=== PATIENT | female | born 1985 | race Caucasian/White ===

== ENCOUNTER 2024-12-08 17:38 | Inpatient (IN) | payer OTHER, SELFPAY ==
[2024-12-08 11:11] VITALS: BP 126/81
[2024-12-08 11:44] LABS: Hematocrit 41.2 % (37.0-47.0); Hemoglobin 13.1 g/dL (12.0-16.0); Mean Corp Hgb Conc. 31.8 g/dL (33.0-37.0); Mean Corpuscular Volume 92.4 fL (81.0-99.0); Nucleated Red Blood Cells % 0 %; Platelet Count 235 10^3/uL (130-400); Red Cell Dist. Width 12.7 % (11.5-14.5)
[2024-12-08 11:52] LABS: Urine Character Clear (Clear)
[2024-12-08 11:54] LABS: HCG, Serum Qualitative Screen Negative
[2024-12-08 11:59] LABS: ALT (SGPT) 39 U/L (0-35); AST (SGOT) 34 U/L (14-36); Albumin 4.4 g/dl (3.5-5.0); Alkaline Phosphatase 62 U/L (38-126); Blood Urea Nitrogen 9 mg/dl (7-17); Calcium 9.0 mg/dl (8.4-10.2); Carbon Dioxide 29 mmol/L (22-30); Chloride 99 mmol/L (98-107); Glucose 100 mg/dl (70-99); Sodium 132 mmol/L (135-145); Total Protein 7.1 g/dl (6.3-8.2); eGFR > 60.00
[2024-12-08 12:14] LABS: Potassium 4.2 mmol/L (3.5-5.1)
--- NOTE | 2024-12-08 12:56 | ED.GENMED ---
History of Present Illness
General
Chief Complaint: Flank Pain
Source: patient
Exam Limitations: none
Time Seen by Provider: 12/08/24 12:55
Nursing documentation reviewed up to this point in time: agreed with
History of Present Illness
History of Present Illness:
Note:
CHIEF COMPLAINT(S)
Vaginal discomfort and sharp abdominal pain.
HISTORY OF PRESENT ILLNESS
The patient is a 38-year-old female who presents with a complaint of vaginal discomfort that started approximately one week ago. The patient initially noted discomfort and inflammation with no accompanying vaginal discharge. She attempted
self-treatment with an wlqk-mcd-glyyqlm antifungal medication, which provided partial relief. Two days ago, she developed sharp pains on her side, which she described as a gap pain or stitch, and dull pain that radiated to her back, accompanied by a
subjective fever. Today, the pain worsened, and she describes it as a persistent, dull pain in her back with some areas of tenderness, particularly when palpated, and more severe upon breathing deeply. She denies any current vaginal discharge or
urination-associated discomfort. The patient visited an urgent care facility where an x-ray was performed, which showed no significant findings. A preliminary urinalysis was also negative. Lab results showed a white blood cell count slightly
elevated at approximately 12.5, suggestive of an inflammatory or infective process. Kidney function tests and electrolytes were normal. No current vomiting, and no recent surgeries reported except for carpal tunnel surgery in the past. The patient
is taking compounded semaglutide for weight management.
ADDITIONAL HISTORY OBTAINED FROM SOURCES OTHER THAN THE PATIENT
According to the urgent care facility where the patient was evaluated, imaging did not reveal acute findings, and urinalysis did not show any signs of infection. Nonetheless, they prescribed antibiotics as a precaution pending further evaluation.
PAST MEDICAL AND SURGICAL HISTORY
The patient underwent carpal tunnel surgery in the past. She reports significant weight loss of about 100 pounds through the use of compounded semaglutide.
CHRONIC MEDICAL CONDITIONS SIGNIFICANTLY AFFECTING CARE
The patient has struggled with weight issues, which she is currently managing with medication.
MEDICATIONS
The patient is currently taking compounded semaglutide for weight loss.
REVIEW OF SYSTEMS
- Gastrointestinal: Reports sharp and dull abdominal pain predominantly on the left side.
- Genitourinary: Reports vaginal discomfort without discharge; no pain with urination.
- Neurological: Denies recent surgeries or focal neurological deficits.
- General: Reports fever, denies vomiting. No recent chest pain reported.
PHYSICAL EXAM
General: Alert, no acute distress.
Skin: Warm, dry.
Head: Normocephalic, atraumatic.
Neck: Supple, trachea midline.
Eye Ears, Nose, Mouth, and Throat: Oral mucosa moist.
Cardiovascular: Normal peripheral perfusion, no edema.
Respiratory: Respirations are non-labored.
Gastrointestinal: Abdomen nondistended, tenderness noted on palpation, particularly on the left side.
Back: Normal range of motion, tenderness reported diffusely in the region.
Musculoskeletal: Normal range of motion, normal strength.
Neurological: Alert and oriented to person, place, time, and situation, no focal neurological deficit observed.
Psychiatric: Cooperative, appropriate mood & affect.
PLAN
1. Plan for a CT scan to evaluate abdominal pain and rule out potential causes such as inflammation or diverticulitis.
2. Manage pain with appropriate analgesics, such as acetaminophen.
3. Continue monitoring lab results, especially white blood cell count for signs of infection or inflammation.
4. Consider further urological evaluation if symptoms persist or worsen, taking into account the potential for kidney involvement.
5. Evaluate and potentially adjust the management plan after CT scan results.
DIFFERENTIAL DIAGNOSIS
The Differential Diagnosis includes, in no particular order and is not limited to:
1. Kidney infection (Pyelonephritis)
2. Urinary Tract Infection
3. Diverticulitis
4. Musculoskeletal pain
5. Ovarian cyst
6. Endometriosis
7. Appendicitis
8. Ectopic
9. Gallbladder disease
10. Inflammatory bowel disease
CARE-UPDATE
12/08/24 - 17:14
Patients imaging from the pelvis indicated the presence of theitis and pyelonephritis, without any obstructing stones observed. A punctate, non-obstructing stone was noted in the left kidney. Plan includes admission to hospitalist care and
initiation of IV rocephin treatment.
Disposition:
SUMMARY OF ENCOUNTER
The patient was seen in the emergency department due to symptoms consistent with a diagnosis of pyelonephritis. The patient presented with fever and abdominal pain, which prompted further investigation and management. Blood cultures and IV fluids
were ordered to assess and address the infection, and IV ceftriaxone (brand name: Rocephin) and ketorolac (brand name: Toradol) were administered for infection management and pain relief, respectively.
DISPOSITION
Admit to hospitalist care.
ASSESSMENT
Pyelonephritis with associated fever requiring inpatient management.
EMERGENCY TREATMENTS ADMINISTERED
IV ceftriaxone and ketorolac were given. IV fluids were administered to maintain hydration and support.
MANAGEMENT OF THE PATIENTS CARE WAS DISCUSSED WITH
Admission to the care of hospitalists was arranged for ongoing management.
PLAN
The plan includes admission for further evaluation and management under the hospitalist team with a focus on infection control and pain management.
INDEPENDENT REVIEW OF LABS AND INTERPRETATION OF TESTS
My independent review of lab tests indicates blood cultures were ordered to identify causative organisms of the infection.
MEDICATION RECONCILIATION
Administered IV ceftriaxone, IV ketorolac, and IV fluids during the visit.
MEDICAL DECISION MAKING
- Number and Complexity of Problems Addressed: Chronic conditions affecting care include past diagnosis of pyelonephritis.
Differential Diagnosis includes kidney infection (pyelonephritis), urinary tract infection, diverticulitis, musculoskeletal pain, ovarian cyst, endometriosis, appendicitis, ectopic , gallbladder disease, and inflammatory bowel disease.
- Data:
Category 1: Blood cultures ordered for further assessment of potential infection.
Category 3: Management discussion included coordinating with hospitalist for patient admission and ongoing care.
DIAGNOSIS
Pyelonephritis (N10)
Phy Exam
Physical Exam
Physical Exam:
.
Sepsis
Sepsis Screening
Sepsis Assessment: Sepsis Ruled Out
Sepsis Screen
Sepsis Screen: Sepsis Ruled Out
Date: 12/08/24
Time: 17:16
Course
Orders/Labs/Results
Orders:
Orders
12/08/24 11:17
Test Result ONCE
12/08/24 11:30
Complete Blood Count/With Diff Urgent
Comprehensive Metabolic Panel Urgent
HCG, Serum Qualitative Screen Urgent
Comment: Notify provider if positive test present
Lactic Acid Q4H
Comment: ON ICE, CANCEL 2ND ORDER IF FIRST LACTIC ACID LEVEL <2
Urinalysis Reflex To Culture Urgent
Date Specimen was Collected: 12/08/24
Time Specimen was Collected: 11:17
Urine Microscopic Reflex Cult Urgent
Blood Culture Q20M
CHRISTINA Source: Blood/Venous
Specimen Description:
Comment: Urgent from separate sites. If patient screens positive for possible sepsis
Urine Culture Urgent
CHRISTINA Source: U
Specimen Description:
Date Specimen was Collected: 12/08/24
Time Specimen was Collected: 11:17
12/08/24 12:55
Blood Culture Q20M
CHRISTINA Source: Blood/Venous
Specimen Description:
Comment: Urgent from separate sites. If patient screens positive for possible sepsis
12/08/24 13:11
CT Abd/pelvis W Iv Cont Urgent
Comment:
Reason For Exam: LLQ abd pain/back pain
Acetaminophen [Tylenol] 650 mg PO NOW STA
12/08/24 17:10
CefTRIAXone [Rocephin] 2,000 mg IV NOW STA
Abnormal Lab Results
12/08/24
11:30
WBC 12.7 H 10^3/uL
(4.8-10.8)
MCHC 31.8 L g/dL
(33.0-37.0)
Absolute Neuts (auto) 11.2 H 10^3/uL
(1.4-6.5)
Absolute Lymphs (auto) 0.7 L 10^3/uL
(1.2-3.4)
Neutrophils % 88.2 H %
(42.2-75.2)
Lymphocytes % 5.7 L %
(20.5-51.1)
Sodium 132 L mmol/L
(135-145)
Glucose 100 H mg/dl
(70-99)
ALT 39 H U/L
(0-35)
Ur Occult Blood Reflex 2+ A
(Negative)
Urine RBC 7-10 A /HPF
(0-2)
Urine WBC (Reflex) 11-15 A /HPF
(0-5)
Urine Bacteria (Reflex) Few A
(Negative)
Urine Albumin (Reflex) 1+ A
(Neg - Trace)
12/08/24 11:30
12/08/24 11:30
Vital Signs
Initial and Last Documented VS:
Initial Vital Signs
Temp Pulse Resp BP Pulse Ox
101 F H 131 16 126/81 98
12/08/24 11:11 12/08/24 11:11 12/08/24 11:11 12/08/24 11:11 12/08/24 11:11
Last Documented Vital Signs
Temp Pulse Resp BP Pulse Ox
99.9 F 110 16 106/56 100
12/08/24 14:03 12/08/24 14:03 12/08/24 14:03 12/08/24 14:03 12/08/24 14:03
*Pulse Oximetry
SaO2: 98
Oxygen Mode of Delivery: Room air
Patient hypoxic: no
*Critical Care Note
Total Time (30-74mins, 75-104mins- exclusive of procedures): Not Applicable
ED Attending Note
-
Portions of this chart may have been created with voice recognition software.� Occasional wrong word or��sound alike� substitutions may have occurred due to the inherent limitations of voice recognition software.
Discharge Plan
Departure
Prescriptions:
No Action
One Daily Tablet Tab
1 tab PO DAILY
levothyroxine [Synthroid] 100 mcg Tablet
100 mcg PO DAILY
acetaminophen 325 mg Tablet
650 mg PO Q4HPRN PRN (Reason: mild pain) Qty: 0 0RF
ibuprofen 600 mg Tablet
600 mg PO Q6HPRN PRN (Reason: moderate pain/cramps) Qty: 0 0RF
Referrals:
Efraín Mark DO [Family Provider]
Interventions
Interventions:
*Risk Screen - Suicide Last Done: 12/08/24 11:11
*General Assessment Last Done: 12/08/24 12:58
*Neglect/Abuse Screening Last Done: 12/08/24 11:11
*ED- Fall Risk Assessment Last Done: 12/08/24 12:58
*ED COVID-19 Vaccine History Last Done: 12/08/24 12:58
*ED Influenza Vaccine History Last Done: 12/08/24 12:58
PX-Byymit-Dhfubvtxhr Assessment Last Done: 12/08/24 12:57
ED-Female Genitourinary Assessment Last Done: 12/08/24 12:57
Discharge Date and Time
Print Language: MALTESE
[2024-12-08] MEDS: TYLENOL 650 MG PO (13:15)
[2024-12-08 14:03] VITALS: BP 106/56
[2024-12-08] MEDS: NSS 1000 IV ×2 (17:17→20:59)
[2024-12-08] MEDS: ROCEPHIN 2000 MG IV (17:17)
[2024-12-08] MEDS: TORADOL 15 MG IV (17:17)
[2024-12-08 17:26] VITALS: BP 110/64
--- NOTE | 2024-12-08 17:27 | HPS.HSE ---
Family Physician
-
Family Physician: Efraín Mark, DO
Chief Complaint
-
left flank pain
History of Present Illness
38-year-old female past medical history of hypothyroidism, presenting with left-sided flank pain rating down to the groin and increased urinary frequency and fever and chills starting yesterday. 2 days ago she had vaginal irritation and was treated
for vaginal yeast infection with a dose of antifungal with some improvement. Denies nausea or vomiting.
She takes GLP-1 agonist for weight loss.
She is a former smoker. Drinks alcohol occasionally.
Medical History
Past Medical History
Past Medical History: Reports Other (hypothyroidism,)
Past Surgical History: Reports None
Social History
Tobacco: Former Smoker
Alcohol: None
Drug: None
Family History
Family History: Not pertinent
Allergies / Home Medications
Allergies reflects when Allergies were last updated in [facility].
Home Medications with original date entered in [facility]
Allergy/Medication List:
Allergies
Allergy/AdvReac Type Severity Reaction Status Date / Time
No Known Allergies Allergy Verified 08/23/22 19:41
Home Medications
One Daily Tablet 1 tab PO DAILY Supplement 05/29/16
levothyroxine 100 mcg tablet (Synthroid) 100 mcg PO DAILY 08/23/22
acetaminophen 325 mg tablet 650 mg (2 x 325 mg) PO Q4HPRN PRN mild pain #0 tabs 08/25/22
ibuprofen 600 mg tablet 600 mg PO Q6HPRN PRN moderate pain/cramps #0 tabs 08/25/22
Review of Systems
-
History Source: Patient
A 12 point ROS was completed and negative except as noted: Yes
Constitutional: Reports No Symptoms
EENT: Reports No Symptoms
Respiratory: Reports No Symptoms
Cardiac: Reports No Symptoms
Abdomen/GI: Reports See HPI
: Reports No Symptoms
Musculoskeletal: Reports No Symptoms
Skin: Reports No Symptoms
Neurological: Reports No Symptoms
Endocrine: Reports No Symptoms
Hematologic/Lymphatic: Reports No Symptoms
Psych: Reports No Symptoms
Physical Exam
Vital Signs
Vital Signs
Temp Pulse Resp BP Pulse Ox
98.9 F 98 16 110/64 100
12/08/24 17:26 12/08/24 17:26 12/08/24 17:26 12/08/24 17:26 12/08/24 17:26
Physical Exam
General: Well Developed, Well Nourished and No Apparent Distress
HEENT: NormoCephalic, Moist mucous membranes and Atraumatic
Respiratory: Clear
Cardiac: S1/S2 and Regular Rhythm; No Murmur or Rub
GI: Soft, Non Distended, Normal Bowel Sounds and Tender (left flank ); No Organomegaly
Rectal: Deferred by Provider
Musculoskeletal: No Clubbing, No Cyanosis and No Edema
Skin: No Rash
Neuro: Nonfocal/grossly intact
Laboratory Results
-
12/08/24 11:30
12/08/24 11:30
Laboratory Results
Lactic Acid Cancelled 12/08/24 15:30
Total Bilirubin 1.3 mg/dl (0.2-1.3) 12/08/24 11:30
AST 34 U/L (14-36) 12/08/24 11:30
ALT 39 U/L (0-35) H 12/08/24 11:30
Alkaline Phosphatase 62 U/L (38-126) 12/08/24 11:30
Data Reviewed
-
Lab Data: Labs Reviewed by me
Old Records: Reviewed
Impression/Plan
-
IMPRESSION:
PLAN:
# Acute left-sided pyelonephritis
-CT abdomen pelvis shows circumferential wall thickening suggestive of cystitis, left-sided urothelial wall thickening and enhancement, ill-defined hypodensity within the posterior aspect of the lower lobe of the left kidney suspicious for
pyelonephritis
-Urinalysis shows 11-15 WBC
- IV fluids
- Urine culture, blood cultures
- Ceftriaxone
- Toradol, Dilaudid, Zofran
# Vaginal yeast infection
- Treated with antifungal dose 2 days ago, does not remember the name
Hypothyroidism
-continue levothyroxine
Former smoker
Full code
DVT prophylaxis�heparin
Regular diet
--- NOTE | 2024-12-08 17:38 | EDCM ---
CM reviewed chart and met with pt bedside in ED. Lives with her and 4 children in 1 story home.
Independent in ADLs, personal care and ambulation at baseline. No DME.
Confirms prescription coverage.
No hx VN or SNF.
PCP: Efraín Mark
Pharmacy: [facility]
Anticipate discharge home, CM will continue to follow for all discharge planning needs.
[2024-12-08 19:55] VITALS: BP 131/61; BMI 29.4
[2024-12-08] MEDS: HEPARIN 5000 UNITS SC (20:59)
[2024-12-08] MEDS: DILAUDID 0.5 MG IV (21:00)
--- NOTE | 2024-12-08 22:59 | PTCARENOTE ---
Receive pt from ER. Pt alert oriented X3, calm, in no distress. Pt assisted X1 to the room. Pt oriented to the room, call torres within reach. Pt states that she has left flank pain. The pain is 6/10 of intensity. Dilaudid 0.5mg given for pain. IVFs
infusing as per order. Temp=99.6, WT=862, RR=18, QT=867/6, SpO2=97% on RA. Will continue to monitor the pt.
[2024-12-08 23:56] VITALS: BP 122/76
[2024-12-09] MEDS: TYLENOL 650 MG PO ×3 (01:45→19:44)
[2024-12-09] MEDS: TORADOL 10 MG IV (03:04)
[2024-12-09] MEDS: SYNTHROID 88 MCG PO (05:03)
[2024-12-09] MEDS: DILAUDID 0.5 MG IV ×4 (05:34→23:15)
[2024-12-09 07:02] LABS: Hematocrit 34.1 % (37.0-47.0); Hemoglobin 11.1 g/dL (12.0-16.0); Mean Corp Hgb Conc. 32.6 g/dL (33.0-37.0); Mean Corpuscular Volume 91.4 fL (81.0-99.0); Nucleated Red Blood Cells % 0 %; Platelet Count 177 10^3/uL (130-400); Red Cell Dist. Width 12.6 % (11.5-14.5)
[2024-12-09 07:10] VITALS: BP 91/50
[2024-12-09 07:10] LABS: ALT (SGPT) 61 U/L (0-35); AST (SGOT) 80 U/L (14-36); Albumin 2.9 g/dl (3.5-5.0); Alkaline Phosphatase 53 U/L (38-126); Blood Urea Nitrogen 7 mg/dl (7-17); Calcium 7.8 mg/dl (8.4-10.2); Carbon Dioxide 25 mmol/L (22-30); Chloride 107 mmol/L (98-107); Estimated Creatinine Clearance > 125 ml/min; Glucose 114 mg/dl (70-99); Potassium 3.3 mmol/L (3.5-5.1); Sodium 133 mmol/L (135-145); Total Protein 5.3 g/dl (6.3-8.2); eGFR > 60.00
[2024-12-09] MEDS: NSS 1000 IV ×2 (07:28→17:29)
[2024-12-09] MEDS: HEPARIN 5000 UNITS SC ×2 (08:04→19:45)
--- NOTE | 2024-12-09 08:25 | W.PN.HOSP.TC ---
Today's Communication/Plan
-
Continue antibiotics
Follow urine and blood cultures
See plan
Assessment / Plan
Assessment / Plan
Physical Exam
General: Well Developed, Well Nourished and No Apparent Distress
HEENT: Normocephalic, Moist mucous membranes and Atraumatic
Respiratory: Clear to Auscultation Bilaterally
Cardiac: S1/S2 and Regular Rhythm
GI: Soft, Non Distended, Normal Bowel Sounds and Tender (left flank ). No CVA tenderness on either side.
Musculoskeletal: No Cyanosis and No Edema
Skin: Warm. Dry.
Neuro: AAOx3. Nonfocal/grossly intact
Assessment/Plan
38-year-old female past medical history of hypothyroidism, presenting with left-sided flank pain rating down to the groin and increased urinary frequency and fever and chills starting yesterday. 2 days ago she had vaginal irritation and was treated
for vaginal yeast infection with a dose of antifungal with some improvement. Denies nausea or vomiting. She takes GLP-1 agonist for weight loss. She is a former smoker. Drinks alcohol occasionally.
#Presentation with Left Sided Abdominal Pain
# Acute left-sided pyelonephritis
-CT abdomen pelvis shows circumferential wall thickening suggestive of cystitis, left-sided urothelial wall thickening and enhancement, ill-defined hypodensity within the posterior aspect of the lower lobe of the left kidney suspicious for
pyelonephritis
-Urinalysis showed 11-15 WBC, and now growing gram negative bacilli
- IV fluids
- Urine culture, blood cultures
- Ceftriaxone
- Toradol, Dilaudid, Zofran
-Blower Mechanic consulted given IUD findings -- responsible for pain?
#Mild Transaminitis
-Suspected secondary to Ceftriaxoe
-Continue to monitor
# Vaginal yeast infection
- Treated with antifungal dose 2 days ago, does not remember the name
Hypothyroidism
-continue levothyroxine
Former smoker
Full code
DVT prophylaxis�heparin
Regular diet
Anticipated Discharge: 24 - 48 hours
Subjective/Interval History
-
Date of Service: December 09, 2024
Patient was seen and examined. She reported that her left-sided pain is better.
Objective Data
-
Labs:
Laboratory Results
12/09/24
06:05
WBC 8.6
Hgb 11.1 L
Hct 34.1 L
Plt Count 177 D
Sodium 133 L
Potassium 3.3 L
Chloride 107
Carbon Dioxide 25
BUN 7
Creatinine 0.5 L
Glucose 114 H
Calcium 7.8 L
Total Bilirubin 0.9
AST 80 H
ALT 61 H
Alkaline Phosphatase 53
Vital Signs:
Vital Signs
Temp Pulse Resp BP Pulse Ox
97.9 F 67 16 91/50 97
12/09/24 07:10 12/09/24 07:10 12/09/24 07:10 12/09/24 07:10 12/09/24 07:10
I&O
12/08/24 12/09/24 12/10/24
06:59 06:59 05:59
Intake Total 480 / 480 1000 / 1000
Balance 480 / 480 1000 / 1000
[2024-12-09] MEDS: KCL 40 MEQ PO (09:23)
[2024-12-09 11:10] VITALS: BP 100/66
[2024-12-09 15:16] VITALS: BP 119/74
[2024-12-09] MEDS: ROCEPHIN 1000 MG IV (15:31)
[2024-12-09 23:14] VITALS: BP 105/68
[2024-12-10] MEDS: NSS 1000 IV ×3 (02:37→21:58)
[2024-12-10] MEDS: DILAUDID 0.5 MG IV ×4 (04:22→21:59)
[2024-12-10] MEDS: SYNTHROID 88 MCG PO (04:23)
[2024-12-10 07:20] VITALS: BP 121/76
[2024-12-10] MEDS: HEPARIN 5000 UNITS SC ×2 (08:14→20:41)
--- NOTE | 2024-12-10 08:26 | W.PN.HOSP.TC ---
Today's Communication/Plan
-
Surgery tomorrow; NPO after midnight. If fever or patient feels worse, surgery will be postponed
Antibiotics switched to oral
Hold Tylenol to avoid masking a potential fever
Assessment / Plan
Assessment / Plan
Physical Exam
General: Well Developed, Well Nourished and No Apparent Distress
HEENT: Normocephalic, Moist mucous membranes and Atraumatic
Respiratory: Clear to Auscultation Bilaterally
Cardiac: S1/S2 and Regular Rhythm
GI: Soft, Non Distended, Normal Bowel Sounds and Tender (left flank ). No CVA tenderness on either side.
Musculoskeletal: No Cyanosis and No Edema
Skin: Warm. Dry.
Neuro: AAOx3. Nonfocal/grossly intact
Assessment/Plan
38-year-old female past medical history of hypothyroidism, presenting with left-sided flank pain rating down to the groin and increased urinary frequency and fever and chills starting yesterday. 2 days ago she had vaginal irritation and was treated
for vaginal yeast infection with a dose of antifungal with some improvement. Denies nausea or vomiting. She takes GLP-1 agonist for weight loss. She is a former smoker. Drinks alcohol occasionally.
#Presentation with Left Sided Abdominal Pain
# Acute left-sided pyelonephritis
-CT abdomen pelvis shows circumferential wall thickening suggestive of cystitis, left-sided urothelial wall thickening and enhancement, ill-defined hypodensity within the posterior aspect of the lower lobe of the left kidney suspicious for
pyelonephritis
-Urinalysis showed 11-15 WBC, and grew pansensitive E. coli
- IV fluids were given
- Blood cultures with no growth to date
- Ceftriaxone switched to Ceftin on 12/10/24
- Dilaudid, Zofran
- Hold Tylenol to avoid masking a potential fever
- Knife Grinder consulted given IUD findings -- NPO to remove IUD and perform laparoscopic bilateral salpingectomy on 12/11/24 -- if patient has fever or feels worse overnight, then surgery will be postponed
#Mild Transaminitis
-Suspected secondary to Ceftriaxone, which has been stopped (last dose was on 12/09/24) and replaced with Ceftin
-Toradol stopped
-Continue to monitor
# Vaginal yeast infection
- Treated with antifungal dose 2 days ago, does not remember the name
Hypothyroidism
-continue levothyroxine
Former smoker
Full code
DVT prophylaxis�heparin
Regular diet
Anticipated Discharge: 24 - 48 hours
Subjective/Interval History
-
Date of Service: December 10, 2024
Patient was seen and examined. She reported the left-sided pain is still there, had fever the night before.
Objective Data
-
Labs:
Laboratory Results
12/10/24
08:01
WBC Pending
Hgb Pending
Hct Pending
Plt Count Pending
Sodium Pending
Potassium Pending
Chloride Pending
Carbon Dioxide Pending
BUN Pending
Creatinine Pending
Glucose Pending
Calcium Pending
Total Bilirubin Pending
AST Pending
ALT Pending
Alkaline Phosphatase Pending
Vital Signs:
Vital Signs
Temp Pulse Resp BP Pulse Ox
98.9 F 84 18 105/68 97
12/10/24 02:40 12/09/24 23:14 12/09/24 23:14 12/09/24 23:14 12/09/24 23:14
I&O
12/09/24 12/10/24 12/11/24
06:59 05:59 06:59
Intake Total 480 / 480 2099
Balance 480 / 480 2099
[2024-12-10 08:59] LABS: Hematocrit 33.2 % (37.0-47.0); Hemoglobin 11.1 g/dL (12.0-16.0); Mean Corp Hgb Conc. 33.4 g/dL (33.0-37.0); Mean Corpuscular Volume 89.5 fL (81.0-99.0); Platelet Count 168 10^3/uL (130-400); Red Cell Dist. Width 12.7 % (11.5-14.5)
[2024-12-10 09:34] LABS: ALT (SGPT) 154 U/L (0-35); AST (SGOT) 104 U/L (14-36); Albumin 3.1 g/dl (3.5-5.0); Alkaline Phosphatase 86 U/L (38-126); Blood Urea Nitrogen 3 mg/dl (7-17); Calcium 8.1 mg/dl (8.4-10.2); Carbon Dioxide 25 mmol/L (22-30); Chloride 106 mmol/L (98-107); Estimated Creatinine Clearance > 125 ml/min; Glucose 86 mg/dl (70-99); Potassium 4.0 mmol/L (3.5-5.1); Sodium 135 mmol/L (135-145); Total Protein 5.5 g/dl (6.3-8.2); eGFR > 60.00
--- NOTE | 2024-12-10 11:31 | W.PN.URO.CBU ---
Today's Communication / Plan
-
continue present care
Assessment / Plan
-
pt with normalizing wbc and panseneiticve e coli will observe but if fevr spikes or wbc spikes then ct urogram
Diagnosis
-
Date of Service: December 10, 2024
-
Patient Diagnosis:complex uti blood cxs neg urine with e coli observing for posibe abscess formation and t=still left flank pain but mos tliley dx is pyelo and still pain from inflammation
Post Op Day:
Subjective
-
fever pain bu adrian than day before
Objective
-
Vital Signs
Temp Pulse Resp BP Pulse Ox
100.1 F 86 16 121/76 97
12/10/24 07:20 12/10/24 07:20 12/10/24 07:20 12/10/24 07:20 12/10/24 07:20
Intake and Output
12/09/24 12/10/24 12/11/24
06:59 05:59 06:59
Intake Total 480 / 480 2099 / 2100
Balance 480 / 480 2099 / 2099
Intake:
Oral fluids 480 / 480
IV fluids (Total) 2099
Other:
Number of approximated MODERATE 3 2
amounts of urine
Laboratory Results
12/10/24 08:01
12/10/24 08:01
Review of Systems
-
Constitutional: Fever and Fatigue
: Flank Pain
Physical Exam
-
General - well developed, well nourished, no acute distress
Chest - clear bilaterally
Abdomen - soft, non-tender, positive bowel sounds, no CVAT, no incisional pain or distention
Genitalia - normal
Rectal - normal
Skin - warm & dry with no rash
Neuro - AOx3, no motor deficits
Extremities - no clubbing, no cyanosis, no edema
Incision - clean, dry
Dressing - clean, dry, intact
Counseling
-
no gu changes
--- NOTE | 2024-12-10 13:28 | CON.MD ---
Addendum entered and electronically signed by Janae Dumont DO 12/10/24 16:51:
Addendum: left IUD limb/arm*
Original Note:
Consultation - Medical
-
38-year-old female with Mirena IUD inserted approximately 2 years ago, was admitted with left-sided flank pain radiating down to the groin. She has had increased urinary frequency and chills starting yesterday. A few days ago she experienced
some vaginal irritation which seem to be increasing in intensity. She used an [id number] Monistat 1 day suppository with some improvement. She spiked a fever at home and had chills and this prompted her to go to urgent care. She was
ultimately directed to [facility].
Gynecologic consultation was requested due to presence of IUD in the uterus with the left limb of the IUD appearing to extend slightly through the uterine wall.
Review of systems: Admitted with positive fever, chills, vulvovaginal irritation, left flank pain. Negative dysuria, negative hematuria. Negative nausea, diarrhea, constipation.
PMH: Hypothyroidism
PSH: Negative
NKDA
Social history: Former tobacco but not current tobacco user, negative alcohol or illicit drug use
Family history noncontributory
OB history: 4 full-term deliveries
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 Her IUD was inserted weeks after her 6-week appointment in 2022. Last Pap several years ago. Denies
abnormal vaginal discharge. Recent vulvovaginal irritation and self treated with Monistat with some improvement. Has completed childbearing.
Physical exam:
General: Well-appearing, no acute distress
VSS Tmax 102.3 (12/09/2024 at 1930)
Heart: Regular rate
Pulmonary: Normal respiratory rate
Positive CVA tenderness on left
Extremities without calf pain or tenderness
Pelvic examination was deferred
CT abdomen/pelvis with IV contrast performed 12/08/2024:
Kidneys: No hydronephrosis. There is a punctate nonobstructing stone in the interpolar of the left kidney. There is an ill-defined hypodensity within the posterior aspect of the lower pole of the left kidney. Mild right sided urethral wall
thickening and enhancement.
No bowel wall thickening or obstruction. Appendix not definitively visualized but there are no findings of acute appendicitis.
Reproductive organs: IUD is present. Left Alimix appears to extend slightly outside the uterine wall (series 201 image 66 and series 203 image 49).
Bladder there is circumferential bladder wall thickening with mucosal hyperenhancement. Tiny fat-containing umbilical hernia. Mild splenomegaly.
WBC 6.0
Hemoglobin 11.1/hematocrit 33.2/platelet 168
Creatinine 0.5
AST 104 (up from 80) and ALT 154 (up from 61)
hCG qualitative negative
Urine culture 12/08/2024: E. coli
Blood culture no growth x 48 hours
Impression:
1. Malposition of Mirena IUD with partial perforation of uterine wall.
2. Multiparity with request for sterilization-patient has completed childbearing. Declines alternative reversible forms of contraception.
Plan:
Reviewed history, prior notes of other providers, labs and reports. Discussed malpositioned IUD and explained to the patient that because this is not in the proper position, it may be less effective. Since there is a small portion of the IUD that
has penetrated the uterine wall, there is risk for complete perforation in the future. It is recommended to remove this IUD. 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
She was trying to make an appointment with the gynecology office closer to her home and [place] but has not yet established care.
Exam under anesthesia with removal of IUD is recommended. I am recommending a diagnostic laparoscopy at the same time to evaluate the uterine wall after the IUD is removed. The purpose of this is to make sure there is no internal bleeding after
removal of the IUD. I asked the patient her plan for future contraception once IUD is removed. She states she and her have completed childbearing and she is interested in permanent sterilization. She does not feel her will follow
through with vasectomy in the near future and timing. Since a laparoscopy will be performed I discussed the option of a bilateral salpingectomy at the time of this procedure. I would not recommend putting a new IUD in the uterus for several months
to allow appropriate healing. The patient states she is not interested in having a new IUD. She is interested in having bilateral salpingectomy.
She was counseled about the recommended procedure which is an exam under anesthesia, removal of IUD, laparoscopic bilateral salpingectomy, possible hysteroscopy or other indicated procedure. I explained the indication, benefits, risks and
alternatives of the procedure. The risks include but are not limited to infection, bleeding, injury to any internal tissues/structures/organs. She was counseled that in any event of a complication, this could necessitate additional procedures not
listed which could prolong hospitalization and/or recovery. Blood transfusion consent with its inherent risks of also been discussed.
I spoke with Dr. Brenner and also contacted Dr. Rincon via [employer] text to outline plan to remove IUD and perform laparoscopic bilateral salpingectomy tomorrow. They wanted to make sure they had no concerns about performing this in light of her other
problems, and specifically being treated for pyelonephritis. Neither Had any problem with me performing this procedure. I reviewed preoperative instructions. Will make her n.p.o. except clears after midnight but must stop clears within 2
hours of going to the OR. Will attempt to find out estimated surgical time. Discussed procedure length of procedure activity restrictions recovery, and postoperative follow-up. Blood transfusion consent with its inherent risks have also been
discussed. She had opportunity to have her questions answered and these were answered to her satisfaction. She discussed salpingectomy with her . She is aware that she has until day of procedure to change her mind regarding salpingectomy.
She is confident of 100% that she does not want to have anymore children in the future.
I notified the patient's nurse of the plan for tomorrow and parameters for NPO.
Total time including dudy-kk-eviy time with the patient, review of previous records, personal review of CT imaging, documentation and coordination of care today in excess of 60 minutes.
Consultation
-
Date/Time Consultation Requested: 12/09/24 17:00
Date/Time Consultation Performed: 12/10/24 1:30pm
Requesting Provider: Dr. Rincon
Performing Provider: Janae Dumont DO
Reason for Consultation: malpositioned IUD and abdominal pain
[2024-12-10 15:40] VITALS: BP 108/68
[2024-12-10] MEDS: ROCEPHIN IV (16:29)
[2024-12-10] MEDS: TYLENOL 650 MG PO (16:45)
[2024-12-10] MEDS: CEFTIN 500 MG PO (20:41)
[2024-12-10 23:55] VITALS: BP 105/60
[2024-12-11] VITALS (11 sets, daily range): BP systolic 104–124; BP diastolic 59–78
[2024-12-11] MEDS: DILAUDID 0.5 MG IV (04:31)
[2024-12-11] MEDS: SYNTHROID 88 MCG PO (04:32)
[2024-12-11 06:53] LABS: Hematocrit 33.0 % (37.0-47.0); Hemoglobin 10.7 g/dL (12.0-16.0); Mean Corp Hgb Conc. 32.4 g/dL (33.0-37.0); Mean Corpuscular Volume 88.9 fL (81.0-99.0); Platelet Count 179 10^3/uL (130-400); Red Cell Dist. Width 12.7 % (11.5-14.5)
--- NOTE | 2024-12-11 07:04 | W.PN.HOSP.TC ---
Today's Communication/Plan
-
Surgery took place today
Continue antibiotics
Hopefully discharge tomorrow if all looking good
Assessment / Plan
Assessment / Plan
Physical Exam
General: Well Developed, Well Nourished and No Apparent Distress
HEENT: Normocephalic, Moist mucous membranes and Atraumatic
Respiratory: Clear to Auscultation Bilaterally
Cardiac: S1/S2 and Regular Rhythm
GI: Soft, Non Distended, Normal Bowel Sounds and Tender (left flank ). No CVA tenderness on either side.
Musculoskeletal: No Cyanosis and No Edema
Skin: Warm. Dry.
Neuro: AAOx3. Nonfocal/grossly intact
Assessment/Plan
38-year-old female past medical history of hypothyroidism, presenting with left-sided flank pain rating down to the groin and increased urinary frequency and fever and chills starting yesterday. 2 days ago she had vaginal irritation and was treated
for vaginal yeast infection with a dose of antifungal with some improvement. Denies nausea or vomiting. She takes GLP-1 agonist for weight loss. She is a former smoker. Drinks alcohol occasionally.
#Presentation with Left Sided Abdominal Pain
# Acute left-sided pyelonephritis
-CT abdomen pelvis shows circumferential wall thickening suggestive of cystitis, left-sided urothelial wall thickening and enhancement, ill-defined hypodensity within the posterior aspect of the lower lobe of the left kidney suspicious for
pyelonephritis
-Urinalysis showed 11-15 WBC, and grew pansensitive E. coli
- IV fluids were given
- Blood cultures with no growth to date
- Ceftriaxone switched to Ceftin on 12/10/24
- Dilaudid, Zofran
- Hold Tylenol to avoid masking a potential fever
- Data Deliverables Manager consulted given IUD findings on CT imaging -- diagnostic laparoscopy, IUD removal, bilateral salpingectomy performed on 12/11/24 -- findings included: IUD removed (malpositioned but intact)- did not appeared to be perforated through the
uterine wall; Normal appearing uterus, bilateral fallopian tubes and ovaries
-Data Deliverables Manager mentioned they will follow-up with patient on 12/12/24
#Mild Transaminitis
-Suspected secondary to Ceftriaxone, which has been stopped (last dose was on 12/09/24) and replaced with Ceftin
-Toradol stopped
-NOW IMPROVING
#Hyponatremia, Mild
-Monitor BMP
# Vaginal yeast infection
- Treated with antifungal dose 2 days ago, does not remember the name
Hypothyroidism
-continue levothyroxine
Former smoker
Full code
DVT prophylaxis�heparin
Regular diet
Anticipated Discharge: Within 24 hours
Subjective/Interval History
-
Date of Service: December 11, 2024
Patient was seen and examined. She reported still having the pain on her left flank area.
Objective Data
-
Labs:
Laboratory Results
12/11/24
06:34
WBC 4.7 L
Hgb 10.7 L
Hct 33.0 L
Plt Count 179
Sodium Pending
Potassium Pending
Chloride Pending
Carbon Dioxide Pending
BUN Pending
Creatinine Pending
Glucose Pending
Calcium Pending
Total Bilirubin Pending
AST Pending
ALT Pending
Alkaline Phosphatase Pending
Vital Signs:
Vital Signs
Temp Pulse Resp BP Pulse Ox
98.9 F 57 17 105/60 97
12/11/24 04:47 12/10/24 23:55 12/10/24 23:55 12/10/24 23:55 12/10/24 23:55
I&O
12/10/24 12/11/24 12/12/24
05:59 06:59 06:59
Intake Total 2099 1440 / 1440
Balance 2099 1440 / 1440
[2024-12-11 07:17] LABS: ALT (SGPT) 127 U/L (0-35); AST (SGOT) 58 U/L (14-36); Albumin 3.2 g/dl (3.5-5.0); Alkaline Phosphatase 95 U/L (38-126); Blood Urea Nitrogen < 2 mg/dl (7-17); Calcium 8.6 mg/dl (8.4-10.2); Carbon Dioxide 25 mmol/L (22-30); Chloride 106 mmol/L (98-107); Estimated Creatinine Clearance > 125 ml/min; Glucose 103 mg/dl (70-99); Potassium 3.9 mmol/L (3.5-5.1); Sodium 134 mmol/L (135-145); Total Protein 5.8 g/dl (6.3-8.2); eGFR > 60.00
[2024-12-11] MEDS: HEPARIN SC (09:27)
[2024-12-11] MEDS: NSS 1000 IV (09:27)
[2024-12-11] MEDS: CEFTIN 500 MG PO ×2 (09:28→20:13)
--- NOTE | 2024-12-11 10:08 | W.PN.URO.CBU ---
Today's Communication / Plan
-
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
Assessment / Plan
-
pt with normalizing wbc and pansensitve e coli will observe pot wit IUD needs replacement
Diagnosis
-
Date of Service: December 11, 2024
-
Patient Diagnosis:
Post Op Day:
Patient Diagnosis:complex uti blood cxs neg urine with e coli observing for posibe abscess formation and t=still left flank pain but mos tliley dx is pyelo and still pain from inflammation
Post Op Day:
Subjective
-
urologically improved afeb no dysuria
Objective
-
Vital Signs
Temp Pulse Resp BP Pulse Ox
98.6 F 64 12 104/63 98
12/11/24 07:00 12/11/24 07:00 12/11/24 07:00 12/11/24 07:00 12/11/24 09:34
Intake and Output
12/10/24 12/11/24 12/12/24
05:59 06:59 06:59
Intake Total 2099 1440 / 1440
Balance 2099 1440 / 1440
Intake:
Oral fluids 1440 / 1440
IV fluids (Total) 2099
Other:
Number of approximated MODERATE 2
amounts of urine
Laboratory Results
12/11/24 06:34
12/11/24 06:34
Review of Systems
-
: No Symptoms
Physical Exam
-
General - well developed, well nourished, no acute distress
Chest - clear bilaterally
Abdomen - soft, non-tender, positive bowel sounds, no CVAT, no incisional pain or distention
Genitalia - normal
Rectal - normal
Skin - warm & dry with no rash
Neuro - AOx3, no motor deficits
Extremities - no clubbing, no cyanosis, no edema
Incision - clean, dry
Dressing - clean, dry, intact
Care Review
Data Reviewed
Discussed with: Hospitalist
CT Scan: Image Pers Reviewed
--- NOTE | 2024-12-11 11:18 | PN.CDI ---
CDI
- -
CDI:
Physician Documentation Request
Admit Date: 12/08/24 17:38
Dear Doctor Gustavo,
Please review the following and provide your response in the progress notes.
Clinical Indicators:
Laboratory Tests
12/08/24 12/09/24 12/10/24
11:30 06:05 08:01
Sodium 132 L 133 L 135
12/11/24
06:34
Sodium 134 L
Based on the above and your clinical assessment, please clarify in the progress notes, the appropriate diagnosis, if significant, that supports the above abnormalities and additional evaluation, monitoring and/or treatment rendered:
Hyponatremia
Abnormal lab value, clinically insignificant
Other(please specify)
Use of terms such as suspected, likely, concern for, or probable (associated with a specific diagnosis that is being evaluated, monitored, or treated as if it exists) are acceptable and can be coded in the inpatient setting, when documented at the
time of discharge.
Thank you,
Josiane Diaz RN BSN CCDS
CDI Specialist
Please contact via tiger text
Please use your independent medical judgment in providing your response.
[2024-12-11] MEDS: FLUSH (NSS) 1 FLUSH IV (11:48)
[2024-12-11] MEDS: ZOFRAN 4 MG IV (11:48)
--- NOTE | 2024-12-11 14:24 | W.SUR.POST ---
Surgical Immediate Post Op
Note
Date of procedure: 12/11/2024
Pre Op Diagnosis: malpositioned IUD, abdominal pain, desires permanent sterilization
Post Op Diagnosis: same
Procedure Performed: diagnostic laparoscopy, IUD removal, bilateral salpingectomy
Surgeon: Janae Dumont DO
Co-Surgeon: Viviana Bustamante DO
Anesthesia: General
Estimated Blood Loss: 5mL
Specimens/Cultures: bilateral fallopian tubes
Complications: none
Operative Findings: IUD removed intact- did not appeared to be perforated through the uterine wall
Normal appearing uterus, bilateral fallopian tubes and ovaries
[2024-12-11] MEDS: DILAUDID 0.25 MG IV (15:07)
[2024-12-11] MEDS: NSS IV (15:58)
--- NOTE | 2024-12-11 15:58 | PTCARENOTE ---
Pt returned from OR/PACU via bed, accompanied by DUDE RANCH MANAGER/volunteer. Pt drowsy but arousable; tearful at times. BROWNING. VSS. On room air- no c/o SOB, lungs clear. Abd soft, tender, BS (+). Abd sites x3 JENNFIER; pt utilizing ice pack to site with good
effect. Pt DTV @ 20:00. Resting in bed at present; at bedside. Will continue to monitor.
--- NOTE | 2024-12-11 16:09 | CM ---
Chart reviewed. OR today for diagnostic laparoscopy, IUD removal, bilateral salpingectomy.
No CM needs at this time
Plan: Home, no needs when stable
[2024-12-11] MEDS: MIRALAX 17 GRAMS PO (17:37)
[2024-12-11] MEDS: ROXICODONE 5 MG PO (20:13)
[2024-12-12] MEDS: DILAUDID 0.5 MG IV (00:13)
[2024-12-12 03:22] VITALS: BP 92/47
[2024-12-12] MEDS: SYNTHROID 88 MCG PO (04:01)
[2024-12-12 07:00] VITALS: BP 109/59
--- NOTE | 2024-12-12 08:34 | W.PN.OBG.DWH ---
Today's Communication / Plan
-
- Patient meeting all postop milestones
- Stable for DC from SOFA INSPECTOR perspective. Postop restrictions and expectations reviewed. Patient to follow up in the office in 2-3 weeks. Oxycodone Rx sent to pharmacy
Assessment/Plan
-
Patient is a 39yo POD#1 s/p diagnostic laparoscopy, IUD removal for malpositioned IUD and bilateral salpingectomy
- Patient meeting all postop milestones
- Stable for DC from SOFA INSPECTOR perspective. Postop restrictions and expectations reviewed. Patient to follow up in the office in 2-3 weeks. Oxycodone Rx sent to pharmacy
Subjective Data
-
Feeling sore, but overall doing well. Excited to go home. Small amount of vaginal bleeding. Pain well controlled. Tolerating a regular diet. Voiding spontaneously.
Objective Data
-
Vital Signs
Temp Pulse Resp BP Pulse Ox
97.8 F 57 18 92/47 96
12/12/24 03:22 12/12/24 03:22 12/12/24 03:22 12/12/24 03:22 12/12/24 03:22
General: well appearing
Abd: soft, nontender, nondistended, incisions c/d/i
[2024-12-12 09:26] LABS: ALT (SGPT) 121 U/L (0-35); AST (SGOT) 55 U/L (14-36); Albumin 3.4 g/dl (3.5-5.0); Alkaline Phosphatase 116 U/L (38-126); Blood Urea Nitrogen 3 mg/dl (7-17); Calcium 9.0 mg/dl (8.4-10.2); Carbon Dioxide 26 mmol/L (22-30); Chloride 106 mmol/L (98-107); Estimated Creatinine Clearance > 125 ml/min; Glucose 91 mg/dl (70-99); Potassium 3.8 mmol/L (3.5-5.1); Sodium 134 mmol/L (135-145); Total Protein 6.1 g/dl (6.3-8.2); eGFR > 60.00
[2024-12-12] MEDS: CEFTIN 500 MG PO (09:46)
[2024-12-12] MEDS: MIRALAX 17 GRAMS PO (09:46)
[2024-12-12] MEDS: ROXICODONE 5 MG PO ×2 (09:46→14:00)
[2024-12-12 09:51] LABS: Hematocrit 36.2 % (37.0-47.0); Hemoglobin 12.2 g/dL (12.0-16.0); Mean Corp Hgb Conc. 33.7 g/dL (33.0-37.0); Mean Corpuscular Volume 85.6 fL (81.0-99.0); Platelet Count 269 10^3/uL (130-400); Red Cell Dist. Width 12.5 % (11.5-14.5)
--- NOTE | 2024-12-12 10:41 | W.PN.HOSP.TC ---
Today's Communication/Plan
-
Discharge today
Assessment / Plan
Assessment / Plan
Physical Exam
General: Well Developed, Well Nourished and No Apparent Distress
HEENT: Normocephalic, Moist mucous membranes and Atraumatic
Respiratory: Clear to Auscultation Bilaterally
Cardiac: S1/S2 and Regular Rhythm
GI: Soft, Non Distended, Normal Bowel Sounds and Tender (left flank ). No CVA tenderness on either side.
Musculoskeletal: No Cyanosis and No Edema
Skin: Warm. Dry.
Neuro: AAOx3. Nonfocal/grossly intact
Assessment/Plan
38-year-old female past medical history of hypothyroidism, presenting with left-sided flank pain rating down to the groin and increased urinary frequency and fever and chills starting yesterday. 2 days ago she had vaginal irritation and was treated
for vaginal yeast infection with a dose of antifungal with some improvement. Denies nausea or vomiting. She takes GLP-1 agonist for weight loss. She is a former smoker. Drinks alcohol occasionally.
#Presentation with Left Sided Abdominal Pain
#Acute left-sided pyelonephritis
-CT abdomen pelvis shows circumferential wall thickening suggestive of cystitis, left-sided urothelial wall thickening and enhancement, ill-defined hypodensity within the posterior aspect of the lower lobe of the left kidney suspicious for
pyelonephritis
-Urinalysis showed 11-15 WBC, and grew pansensitive E. coli
- IV fluids were given
- Blood cultures with no growth to date
- Ceftriaxone switched to Ceftin on 12/10/24 -- continue Ceftin through 12/17/24
- Dilaudid, Zofran
- Heavy Equipment Technician consulted given IUD findings on CT imaging -- diagnostic laparoscopy, IUD removal, bilateral salpingectomy performed on 12/11/24 -- findings included: IUD removed (malpositioned but intact)- did not appeared to be perforated through the
uterine wall; Normal appearing uterus, bilateral fallopian tubes and ovaries
-Heavy Equipment Technician mentioned they will follow-up with patient on 12/12/24 -- outpatient follow-up in 2 to 3 weeks (prescription for Oxycodone sent to pharmacy by HEAD OF HISTORY)
#Mild Transaminitis
-Suspected secondary to Ceftriaxone, which has been stopped (last dose was on 12/09/24) and replaced with Ceftin
-Toradol stopped
-NOW IMPROVING
-Recheck CMP outpatient
#Hyponatremia, Mild
-Monitor BMP
# Vaginal yeast infection
- Treated with antifungal dose 2 days ago, does not remember the name
Hypothyroidism
-continue levothyroxine
Former smoker
Full code
DVT prophylaxis�heparin
Regular diet
More than 30 minutes spent in discharge including
Final examination of the patient
Summarizing hospital stay
Instructions for continuing care to all relevant caregivers
Preparation of discharge records, prescriptions, and referral forms
Total time spent (in minutes): 39
Anticipated Discharge: Today
Subjective/Interval History
-
Date of Service: December 12, 2024
Patient was seen and examined. She reported her abdominal pain is now gone. She is tolerating diet. She is looking forward to being discharged today.
Objective Data
-
Labs:
Laboratory Results
12/12/24
08:16
WBC 7.9
Hgb 12.2
Hct 36.2 L
Plt Count 269 D
Sodium 134 L
Potassium 3.8
Chloride 106
Carbon Dioxide 26
BUN 3 L
Creatinine 0.5 L
Glucose 91
Calcium 9.0
Total Bilirubin 1.3
AST 55 H
ALT 121 H
Alkaline Phosphatase 116
Vital Signs:
Vital Signs
Temp Pulse Resp BP Pulse Ox
97.9 F 71 12 109/59 98
12/12/24 07:00 12/12/24 07:00 12/12/24 07:00 12/12/24 07:00 12/12/24 07:00
I&O
12/11/24 12/12/24 12/13/24
06:59 06:59 06:59
Intake Total 1440 / 1440 1180 / 1180
Output Total 1200 / 1200
Balance 1440 / 1440 -20 / -20
[2024-12-12 11:00] VITALS: BP 103/64
--- NOTE | 2024-12-12 15:08 | CM ---
Patient will d/c home today
No CM needs
Plan: Home, no needs
[2024-12-12 15:17] VITALS: BP 104/58
--- NOTE | 2024-12-12 15:17 | W.PN.URO.CBU ---
Today's Communication / Plan
-
no gu intervention
Assessment / Plan
-
pt with normalizing wbc and pansensitve e coli will observe do outpatient ur cx t aware
Diagnosis
-
Date of Service: December 12, 2024
-
Patient Diagnosis:
Post Op Day:
Patient Diagnosis:
Post Op Day:
Patient Diagnosis:complex uti blood cxs neg urine with e coli observing for posibe abscess formation and t=still left flank pain but mos tliley dx is pyelo and still pain from inflammation
Post Op Day:
Subjective
-
much less pain eithe rfrom resolution uti or remval iud
Objective
-
Vital Signs
Temp Pulse Resp BP Pulse Ox
97.7 F 80 20 103/64 98
12/12/24 11:00 12/12/24 11:00 12/12/24 11:00 12/12/24 11:00 12/12/24 11:00
Intake and Output
12/11/24 12/12/24 12/13/24
06:59 06:59 06:59
Intake Total 1440 / 1440 1180 / 1180
Output Total 1200 / 1200
Balance 1440 / 1440 -20 / -20
Intake:
Oral fluids 1440 / 1440 480 / 480
IV fluids (Total) 700 / 700
Normosol 100 / 100
Output:
Urine, Voided 1200 / 1200
Other:
Number of approximated MODERATE 2
amounts of urine
Laboratory Results
12/12/24 08:16
12/12/24 08:16
Review of Systems
-
: No Symptoms
Physical Exam
-
General - well developed, well nourished, no acute distress
Chest - clear bilaterally
Abdomen - soft, non-tender, positive bowel sounds, no CVAT, no incisional pain or distention
Genitalia - normal
Rectal - normal
Skin - warm & dry with no rash
Neuro - AOx3, no motor deficits
Extremities - no clubbing, no cyanosis, no edema
Incision - clean, dry
Dressing - clean, dry, intact
Counseling
-
no gu changes
== END 2024-12-12 16:26 | disposition home or self-care (01) | DRG 742 ==
LOC: 4 EAST ACU 17:38
PROVIDERS: Emergency Medicine; ADMITTING PHYSICIAN Hospitalist; ATTENDING PHYSICIAN Hospitalist; CONSULT PHYSICIAN Obstetrics & Gynecology; CONSULT PHYSICIAN Specialist; EMERGENCY PHYSICIAN Emergency Medicine; FAMILY PHYSICIAN Family Medicine
PROC: 0UT74ZZ Resection of Bilateral Fallopian Tubes, Percutaneous Endoscopic Approach (ICD-10-PCS; 2024-12-11)
PROC: 0UPD4HZ Removal of Contraceptive Device from Uterus and Cervix, Percutaneous Endoscopic Approach (ICD-10-PCS; 2024-12-11)
DX: T83.32XA Displacement of intrauterine contraceptive device, initial encounter (principal); E87.1 Hypo-osmolality and hyponatremia; N10 Acute pyelonephritis; Y76.2 Prosthetic and other implants, materials and accessory obstetric and gynecological devices associated with adverse incidents; Z30.2 Encounter for sterilization; E03.9 Hypothyroidism, unspecified; Z87.891 Personal history of nicotine dependence; N20.0 Calculus of kidney; N30.90 Cystitis, unspecified without hematuria
CPT/HCPCS: 74177; 80053; 81003; 81015; 83605; 84703; 85025; 85027; 87040; 87077; 87086; 87186; 88302; 96361; 96374; 96375; 99285; Q9967